=== PATIENT | female | born 1980 | race Caucasian/White ===

== ENCOUNTER 2017-02-01 19:03 | Emergency (ER) | payer OTHER ==
[2017-02-01 19:14] VITALS: RESP 16; O2SAT 95
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
[2017-02-01 20:19] VITALS: BP 117/70; PULSE 62; TEMP 98.6
== END 2017-02-01 20:19 | disposition home or self-care (01) ==
DX: S16.1XXA Strain of muscle, fascia and tendon at neck level, initial encounter (principal); S46.811A Strain of other muscles, fascia and tendons at shoulder and upper arm level, right arm, initial encounter; F17.200 Nicotine dependence, unspecified, uncomplicated; V49.60XA Unspecified car occupant injured in collision with unspecified motor vehicles in traffic accident, initial encounter; Y92.410 Unspecified street and highway as the place of occurrence of the external cause

== ENCOUNTER → 2018-08-12 | Outpatient (CLI) | payer MEDICAID | LOC: FIMAGING 11:39 | PROVIDERS: ATTEND Advanced Practice Midwife | DX: O09.522 Supervision of elderly multigravida, second trimester (principal); Z3A.20 20 weeks gestation of pregnancy; Z14.1 Cystic fibrosis carrier ==